=== PATIENT | female | born 1940 | race Caucasian/White ===

== ENCOUNTER → 2020-08-06 | Outpatient (CLI) | payer MEDICARE, BC ==
[~2020-08-06] MED LIST: EZET10TA20 PO
--- NOTE | 2020-08-06 17:26 | CARD ---
MR#: [id number] Date of Study: 08/06/2020 Ordering Physician: LAURA CUI, Referring Physician: LAURA CUI Tech: Tamica Nash RDCS APPROVED REPORT EXAM: Two-dimensional and M-mode echocardiogram with Doppler and color Doppler. Other Information Quality : Good INDICATION Cardiac Disease: CAD 2D DIMENSIONS RVDd2.5 (2.9-3.5cm)Left Atrium(2D)4.1 (1.6-4.0cm) IVSd1.0 (0.7-1.1cm)Aortic Root(2D)3.2 (2.0-3.7cm) LVDd4.2 (3.9-5.9cm)PWd1.1 (0.7-1.1cm) LVDs2.2 (2.5-4.0cm)FS (%) 30.0 % SV64.6 mlLVEF(%)60.0 (>50%) M-Mode DIMENSIONS Aortic Cusp Exc1.38 (1.5-2.0cm) Aortic Valve AoV Peak Renaldo.173.3cm/sAoV VTI39.9cm AO Peak GR.12.0mmHgAO Mean GR.8mmHg MELECIO (VTI)2.39cm2 Mitral Valve MV E Wcofkbyx862.4cm/sMV DECEL FDZV329pa MV A Iruiylyf270.8cm/sE/A Ratio0.8 Tricuspid Valve TR P. Pcvgsskt826hs/sRAP FRZORUGS4eyNl TR Peak Gr.40gvGdORZZ81oeNg LEFT VENTRICLE The left ventricle is normal size. There is normal left ventricular wall thickness. The left ventricu lar systolic function is normal and the ejection fraction is within normal range. The Ejection Fracti on is 60-65%. There is normal LV segmental wall motion. Transmitral Doppler flow pattern is Grade I-a bnormal relaxation pattern. RIGHT VENTRICLE The right ventricle cavity is small. The right ventricular systolic function is normal. ATRIA The left atrium is mildly dilated. The right atrium size is normal. The interatrial septum is intact with no evidence for an atrial septal defect or patent foramen ovale as noted on 2-D or Doppler imagi ng. AORTIC VALVE The aortic valve has a moderately thickened annulus but opens well. Doppler and Color Flow revealed n o significant aortic regurgitation. There is no significant aortic valvular stenosis. MITRAL VALVE The mitral valve is calcified but opens well. Mitral annular calcification is mild to moderate. There is no evidence of mitral valve prolapse. There is no mitral valve stenosis. Doppler and Color-flow r evealed mild mitral regurgitation. TRICUSPID VALVE The tricuspid valve is normal in structure and function. Doppler and Color Flow revealed mild tricusp id regurgitation. The PA pressure was estimated at 31 mmHg. There is no tricuspid valve stenosis. PULMONIC VALVE The pulmonic valve is not well visualized. Doppler and Color Flow revealed trace pulmonic valvular re gurgitation. There is no pulmonic valvular stenosis. GREAT VESSELS The aortic root is normal in size. The ascending aorta is normal in size. The IVC is normal in size a nd collapses >50% with inspiration. PERICARDIAL EFFUSION There is no evidence of significant pericardial effusion. Critical Notification Critical Value: No <Conclusion> The left ventricle is normal size. The left ventricular systolic function is normal and the ejection fraction is within normal range. The Ejection Fraction is 60-65%. The aortic valve has a moderately thickened annulus but opens well. Doppler and Color Flow revealed no significant aortic regurgitation. There is no significant aortic valvular stenosis. Doppler and Color-flow revealed mild mitral regurgitation. Doppler and Color Flow revealed mild tricuspid regurgitation. The PA pressure was estimated at 31 mmHg. Signed by : Yao Carlson MD Electronically Approved : 08/06/2020 17:26:05
== END ==
LOC: ECHO 08:38
PROVIDERS: ATTEND Internal Medicine Cardiovascular Disease
DX: I08.3 Combined rheumatic disorders of mitral, aortic and tricuspid valves (principal); I25.10 Atherosclerotic heart disease of native coronary artery without angina pectoris
CPT/HCPCS: 93306

== ENCOUNTER → 2021-03-06 | Outpatient (CLI) | payer MEDICARE, BC ==
[~2021-03-06] MED LIST changes: +REGADENOSON 0.4 MG/5 ML DISP.SYRIN. IV ONE
--- NOTE | 2021-03-06 13:03 | RAD ---
MR#: [id number] Date of Study: 03/06/2021 Ordering Physician: LAURA CUI, Referring Physician: JANAE RILEY Tech: TRACI Yoder APPROVED REPORT Test Type: Pharmacological Stress Nurse/Tech: TRACI Yoder Test Indications: CAD Cardiac History: Three stents Medications: see EHR Medical History: see EHR Resting ECG: SR with RBBB Resting Heart Rate: 62 bpm Resting Blood Pressure: 152/64mmHg Pretest Chest Pain: None Nurse/Tech Notes Consent: The procedure was explained to the patient in lay terms. Informed consent was witnessed. Rafael eout was entered into [employer]. History and Stress Test performed by TRACI Yoder Pharm. Details Pharmacologic stress testing was performed using 0.4mg per 5ml of regadenoson given intravenously ove r 7-10 seconds. POST EXERCISE Reason for Termination: Infusion complete Max HR: 88 bpm Max Blood Pressure: 118/49mmHg Blood Pressure response to exercise: Normal blood pressure response during stress. Chest Pain: No. INTERPRETATION Stress EKG Conclusion: No evidence of stress induced EKG changes. Imaging Protocol IMAGE PROTOCOL: Rest Tc-99m/stress Tc-99m 1 day Rest: Stress: Viability: Radiopharm.Tc99m KuqmpnohdZn34l Sestamibi Oljv02dBa 33mCi Duration 15min. 10min. Img Date 03/06/2021 03/06/2021 Inj-Img Vftq67uni. 60min. Rest Admin Site:IV - Right HandAdministrator: TRACI Yoder Stress Admin Site: IV - Right HandAdministrator: TRACI Yoder STRESS DATA End Diast. Vol.58.0mlAv. Heart Rate78.0bpm End Syst. Vol.7.0mlCO Index BSA4.0L/min Myocardial Iknc493.0gEject. Tesxjcgc23.0% Stress Rates Pk. Fill Rate3.88EDV/secLVtime Pk. Fill 219.89msec Pk. Empty Rate6.14ESV/secLVtime Pk. Cfzyr752.80msec 1/3 Pk. Fill1.15EDV/sec Stress Scores Regional WT0.00Summed WT0.00 Regional WM0.00Summed WM0.00 The rest and stress images show normal perfusion, normal contraction and thickening. LV Perf. Quant 17 Seg. SSS2.00 17 Seg. SRS0.00 17 Seg. SDS2.00 Stress Defect Extent (% LAD)0.00Rest Defect Extent (% LAD)0.00Rev. Defect Extent (% LAD)0.00 Stress Defect Extent (% LCX) 0.00Rest Defect Extent (% LCX)0.00Rev. Defect Extent (% LCX)0.00 Stress Defect Extent (% RCA)13.30Rest Defect Extent (% RCA)0.00Rev. Defect Extent (% RCA)13.30 Stress Defect Extent (% ARTURO)2.60Rest Defect Extent (% ARTURO)0.40Rev. Defect Extent (% ARTURO)2.60 Other Information Quality:Fair Risk Assessment: Low Risk Conclusion 1. No evidence of EKG changes with stress testing. 2. Normal perfusion at stress/rest. 3. Low risk study. 4. EF > 60%. Signed by : Yohannes Quijano, Electronically Approved : 03/06/2021 13:02:34
== END ==
LOC: NM 07:42
PROVIDERS: ATTEND Internal Medicine Cardiovascular Disease
DX: I25.10 Atherosclerotic heart disease of native coronary artery without angina pectoris (principal); E78.5 Hyperlipidemia, unspecified
CPT/HCPCS: 78452; 80061; 93017; A9500; J2785

== ENCOUNTER → 2021-09-09 | Outpatient (CLI) | payer MEDICARE, BC ==
[~2021-09-09] MED LIST changes: -REGADENOSON 0.4 MG/5 ML DISP.SYRIN. IV ONE
--- NOTE | 2021-09-10 07:19 | CARD ---
MR#: [id number] Date of Study: 09/09/2021 Ordering Physician: LAURA CUI, Referring Physician: Kelly RILEY: Neno Rodney [facility] APPROVED REPORT EXAM: Two-dimensional and M-mode echocardiogram with Doppler and color Doppler. Other Information Quality : AverageHR: 62bpm Rhythm : NSR INDICATION Cardiac Disease: CAD RISK FACTORS Hypertension 2D DIMENSIONS Left Atrium(2D)4.7 (1.6-4.0cm)IVSd1.3 (0.7-1.1cm) Aortic Root(2D)3.3 (2.0-3.7cm)LVDd4.0 (3.9-5.9cm) LVOT Diameter1.8 (1.8-2.4cm)PWd1.3 (0.7-1.1cm) LA Txhbxt31 (18-58mL)LVDs1.8 (2.5-4.0cm) FS (%) 55.2 %SV59.7 ml LVEF(%)86.3 (>50%) Aortic Valve AoV Peak Renaldo.247.0cm/sAoV VTI55.0cm AO Peak GR.24.4mmHgLVOT Peak Renaldo.152.9cm/s LVOT VTI 37.90cmAO Mean GR.14mmHg MELECIO (VMAX)1.79nb5KFF (VTI)1.81cm2 Mitral Valve MV E Qgyqwyoa850.0cm/sMV E Peak Gr.11mmHg MV DECEL [id number] A Fjsorlzn637.5cm/s MV E Mean Gr.4mmHgE/A Ratio0.8 Pulmonary Valve PV Peak Jguhrkqj809.7cm/sPV Peak Grad.4mmHg Tricuspid Valve TR P. Fuhkwrot868ej/sTR Peak Gr.26mmHg Pulmonary Vein S1 Kaanjjan09.1cm/sD2 Zgpbevaw58.8cm/s LEFT VENTRICLE The left ventricle is normal size. There is mild concentric left ventricular hypertrophy. The left ve ntricular systolic function is normal and the ejection fraction is within normal range. EF 55% There is normal LV segmental wall motion. Tissue Doppler imaging reveals mild left ventricular diastolic dy sfunction. No left ventricle thrombus noted on this study. There is no ventricular septal defect visu alized. There is no left ventricular aneurysm. There is no mass noted in the left ventricle. RIGHT VENTRICLE The right ventricle is normal size. There is normal right ventricular wall thickness. The right ventr icular systolic function is normal. ATRIA The left atrium is moderately dilated. The right atrium size is normal. The interatrial septum is int act with no evidence for an atrial septal defect or patent foramen ovale as noted on 2-D or Doppler i maging. AORTIC VALVE The aortic valve is moderately thickened but opens well. The aortic valve is moderately calcified. Do ppler and Color Flow revealed no significant aortic regurgitation. There is no significant aortic alem vular stenosis by doppler criteria. Visually the valve appears mildly stenotic. Calculated aortic alem ve area is 1.7 cm2 with maximum pressure gradient of 22 mmHg and mean pressure gradient of 13 mmHg. T here is no aortic valvular vegetation. MITRAL VALVE The mitral valve is thickened but opens well. Mitral annular calcification is moderate. There is no e vidence of mitral valve prolapse. There is no mitral valve stenosis. Calculated mitral valve area is 1.7 cm2 with maximum pressure gradient of 10 mmHg and mean pressure gradient of 4 mmHg. Doppler and C olor-flow revealed trace to mild mitral regurgitation. TRICUSPID VALVE The tricuspid valve is normal in structure and function. Doppler and Color Flow revealed trace to mil d tricuspid regurgitation. There is no tricuspid valve prolapse or vegetation. There is no tricuspid valve stenosis. PULMONIC VALVE The pulmonary valve is normal in structure and function. There is trivial pulmonic regurgitation. The re is no pulmonic valvular stenosis. GREAT VESSELS The aortic root is normal in size. The ascending aorta is normal in size. The IVC is normal in size a nd collapses >50% with inspiration. PERICARDIAL EFFUSION There is no pleural effusion. There is no evidence of significant pericardial effusion. Critical Notification Critical Value: No <Conclusion> The left ventricular systolic function is normal and the ejection fraction is within normal range. EF 55% There is normal LV segmental wall motion. There is no significant aortic valvular stenosis by doppler criteria. Visually the valve appears mild ly stenotic. Calculated aortic valve area is 1.7 cm2 with maximum pressure gradient of 22 mmHg and me an pressure gradient of 13 mmHg. Signed by : Yohannes Quijano, Electronically Approved : 09/10/2021 07:19:03
== END ==
LOC: ECHO 09:44
PROVIDERS: ATTEND Internal Medicine Cardiovascular Disease
DX: I08.8 Other rheumatic multiple valve diseases (principal); I25.10 Atherosclerotic heart disease of native coronary artery without angina pectoris
CPT/HCPCS: 93306